=== PATIENT | female | born 1990 | race Caucasian/White ===

== ENCOUNTER 2016-05-02 21:56 | Emergency (ER) | payer OTHER ==
[2016-05-02 22:08] VITALS: BP 133/88; PULSE 80; TEMP 98.8; BMI 35.4
[2016-05-02 22:12] LABS: URINE APPEARANCE Cloudy; URINE BILIRUBIN Negative (NEGATIVE); URINE BLOOD 3+ (NEGATIVE); URINE COLOR YELLOW; URINE GLUCOSE (UA) Negative (NEGATIVE); URINE KETONE 1+ (NEGATIVE); URINE LEUK ESTERASE 1+ (NEGATIVE); URINE NITRITE Negative (NEGATIVE); URINE PROTEIN 3+ (NEGATIVE); URINE UROBILINOGEN 0.2 E.U/dl (0.2-1.0)
[2016-05-02 22:14] LABS: URINE RBC LOADED /hpf (0-3)
[2016-05-02 22:15] LABS: URINE BACTERIA FEW /hpf (NEGATIVE); URINE WBC 0-2 (3-5)
--- NOTE | 2016-05-02 22:17 | PDOC ---
History of Present Illness - General Chief Complaint: Pain Stated Complaint: RT FLANK PAIN Time Seen by Provider: 05/02/16 22:00 History Source: Patient Exam Limitations: No Limitations - History of Present Illness Initial Comments: 05/02/16 22:13 This is a 25-year-old female who comes in with her father for evaluation of right flank pain. Patient said that was acute onset of the pain. It was associated with some nausea but no vomiting. Patient said pain is somewhat waxing and waning. With radiation to her right lower abdominal area. Patient also has her menses and was recently treated for urinary tract infection so wasn 't sure what exactly was causing the pain. Patient does have a strong family history of renal colic she denies any history of kidney stones herself in the past. She denies any fevers or chills. PAST MEDICAL HISTORY: no significant history PAST SURGICAL HISTORY: no significant history FAMILY HISTORY: no pertinant history SOCIAL HISTORY: Pt lives with family and is employed. MEDICATIONS: reviewed ALLERGIES: As per nursing notes Review of Systems General: No fevers or chills, no weakness, no weight loss HEENT: No change in vision. No sore throat,. No ear pain CardioVascular: No chest pain or shortness of breath Respiratory:No cough, or wheezing. Gastrointestinal: no nausea, vomitting, diarrhea or constipation, No rectal bleeding Genitourinary: Plus mild dysuria, right flank pain abdomen and pelvis noncontrast Musculoskeletal: No joint or muscle pain or swelling Neurologic: No headache, vertigo, dizziness or loss of consciousness Psychiatric: nor depression Skin: No rashes or easy bruising Endocrine: no increased thirst or abnormal weight change Allergic: no skin or latex allergy All other systems reviewed and normal Exam: General: Well-nourished well-developed individual, no acute distress HEENT: Throat: Normal, tonsils normal, no erythema or exudate Neck: Supple, no meningeal signs, no lymphadenopathy Eyes::Pupils equal reactive and round, extraocular motion intact Chest: Nontender to palpation Cardiac: S1-S2 normal, regular rate and rhythm, no murmurs rubs or gallops Respiratory: Lungs clear to auscultation bilateral Abdomen: Soft, nondistended, normal bowel sounds, nontender to palpation diffusely Back/right flank there is tenderness on palpation right lower flank area. There is no CVA tenderness. Extremities: Warm, dry, no cyanosis, clubbing, or edema Skin: No rashes Neuro: Alert and oriented x3, nonfocal exam, grossly intact, normal gait Psych: Normal mood and affect 05/02/16 23:47 CAT scan shows no Goehner no nephrosis or hydroureter and no renal stones. It does show some small ovarian cyst that A shouldn't will need to follow-up with her OB It also shows a herniation of the disc at the L1-L2 level Assessment and plan: This is a 25-year-old female with right-sided flank pain. Patient had a workup that does show some blood in her urine but she is also having her menses. Patient also is complaining of some dysuria but there is no evidence of urinary tract infection at this time in her urine. There were a few white cells and bacteria but it also is not a clean catch. There is a fair amount of blood in the urine but patient is also to having her menses at this time. Patient's pain is most likely secondary to the herniated disc L1-L2 level. Patient was told to take ibuprofen or Aleve for the pain. She is given a prescription of prescription strength Naprosyn. Patient also given referral to an orthopedist. Patient told she needs to also follow-up with her OB doctor for an exam and ultrasound of her ovaries. Past History - Past Medical History Allergies/Adverse Reactions: Allergies Allergy/AdvReac Type Severity Reaction Status Date / Time Penicillins Allergy Verified 05/02/16 22:04 Home Medications: Ambulatory Orders Naproxen [Naprosyn -] 500 mg PO BID #14 tablet 05/02/16 Other medical history: DENIES - Psycho/Social/Smoking Cessation Hx Anxiety: No Suicidal Ideation: No Smoking History: Never smoked *Physical Exam - Vital Signs Last Vital Signs Temp Pulse Resp BP Pulse Ox 98.8 F 80 18 133/88 99 05/02/16 22:05 05/02/16 22:05 05/02/16 22:05 05/02/16 22:05 05/02/16 22:05 ED Treatment Course - LABORATORY CBC & Chemistry Diagram: 05/02/16 22:20 05/02/16 22:20 *DC/Admit/Observation/Transfer Diagnosis at time of Disposition: Acute right flank pain - Discharge Dispostion Disposition: HOME Condition at time of disposition: Stable - Patient Instructions Additional Instructions: For the pain take naproxen 1 tablet twice a day with food don't take on an empty stomach. I said a prescription for naproxen to your pharmacy. Your CAT scan showed some small cysts on your ovary that need to get followed up with your OB. Call your OB for an appointment and take the copy of your CAT scan with you. Follow-up also with an orthopedist if your back pain persists beyond a week. If he needed an orthopedist call Dr. Powell at [phone]. Return to the emergency department immediately with ANY new, persistent or worsening symptoms. Continue any medications as previously prescribed by your physician. You should follow up with your primary doctor as soon as possible regarding today's emergency department visit. . Please make sure your doctor reviews the results of your emergency evaluation. Thank you for coming to the Emergency Department today for your care. It was a pleasure to see you today. Please note that your evaluation is INCOMPLETE until you follow-up with your doctor.
[2016-05-02] MEDS ORDERED: SODIUM CHLORIDE 1,000 ML IV ONE (22:19)
[2016-05-02] MEDS ORDERED: morphine CARPU-JECT 2 MG/1 ML DISP.SYRIN IVPUSH ONE (22:19)
[2016-05-02] MEDS ORDERED: KETOROLAC TROMETHAMINE 30 MG/1 ML VIAL IVPUSH ONE (22:19)
[2016-05-02 22:26] LABS: BASOPHIL 0.7 % (0-2.0); EOSINOPHIL 1.1 % (0-4.5); MCH 27.8 pg (25.7-33.7); MCHC 32.6 g/dl (32.0-36.0); MEAN CELL VOLUME 85.4 fl (80-96); NEUTROPHILS 60.5 % (42.8-82.8); PLATELET COUNT 356 K/MM3 (134-434); RDW 13.9 % (11.6-15.6); WHITE BLOOD COUNT 8.1 K/mm3 (4.0-10.0)
[2016-05-02 23:22] LABS: ALBUMIN 4.2 g/dl (3.5-5.0); BILIRUBIN,TOTAL 0.6 mg/dl (0.2-1.0); CALCIUM 8.8 mg/dl (8.4-10.2); CREATININE 1.1 mg/dl (0.6-1.3); TOT PROT 7.2 g/dl (6.4-8.3)
== END 2016-05-02 23:56 | disposition home or self-care (01) ==
LOC: FER 21:56
PROC: 3E0337Z Introduction of Electrolytic and Water Balance Substance into Peripheral Vein, Percutaneous Approach (ICD-10-PCS; principal; 2016-05-02)
DX: R10.31 Right lower quadrant pain (principal)
CPT/HCPCS: 36415; 74176-TC; 80053; 81003; 81015; 84703; 85025; 99282-25

== ENCOUNTER 2016-12-10 21:48 | Emergency (ER) | payer OTHER ==
[2016-12-10 21:57] VITALS: BP 120/75; PULSE 84; TEMP 98.5; BMI 41.1
--- NOTE | 2016-12-10 21:59 | PDOC ---
History of Present Illness - General Chief Complaint: Shortness of Breath Stated Complaint: SOB/PRESSURE IN CHEST Time Seen by Provider: 12/10/16 21:49 History Source: Patient Exam Limitations: No Limitations - History of Present Illness Initial Comments: 26 yo F history asthma (not on medication) presents with palpitations, pressure in her chest. She states that she was recently told that she needs to have a root canal done or have the tooth pulled out. She states that today she felt some heaviness in her chest, palpitations. She endorses anxiety about having the tooth treated. Denies SOB, wheezing. She started clindamycin for the tooth today. Past History - Past Medical History Allergies/Adverse Reactions: Allergies Allergy/AdvReac Type Severity Reaction Status Date / Time Penicillins Allergy Verified 12/10/16 21:52 Home Medications: Ambulatory Orders Clindamycin [Cleocin -] 150 mg PO Q8H 12/10/16 - Psycho/Social/Smoking Cessation Hx Anxiety: No Suicidal Ideation: No Smoking History: Never smoked Review of Systems - Review of Systems Able to Perform ROS?: Yes Comments:: GENERAL/CONSTITUTIONAL: No fever or chills. No weakness. HEAD, EYES, EARS, NOSE AND THROAT: No change in vision. No ear pain or discharge. No sore throat. +Dental pain. CARDIOVASCULAR: No chest pain or shortness of breath. RESPIRATORY: No cough, wheezing, or hemoptysis. GASTROINTESTINAL: No nausea, vomiting, diarrhea or constipation. GENITOURINARY: No dysuria, frequency, or change in urination. MUSCULOSKELETAL: No joint or muscle swelling or pain. No neck or back pain. SKIN: No rash NEUROLOGIC: No headache, vertigo, loss of consciousness, or change in strength/ sensation. ENDOCRINE: No increased thirst. No abnormal weight change. HEMATOLOGIC/LYMPHATIC: No anemia, easy bleeding, or history of blood clots. ALLERGIC/IMMUNOLOGIC: No hives or skin allergy. *Physical Exam - Physical Exam Comments: GENERAL: Awake, alert, and fully oriented, in no acute distress HEAD: No signs of trauma EYES: PERRLA, EOMI, sclera anicteric, conjunctiva clear ENT: Auricles normal inspection, hearing grossly normal, nares patent, oropharynx clear without exudates. Moist mucosa. +Dental caries to tooth #17, with tenderness to percussion. NECK: Normal ROM, supple, no lymphadenopathy, JVD, or masses LUNGS: Breath sounds equal, clear to auscultation bilaterally. No wheezes, and no crackles HEART: Regular rate and rhythm, normal S1 and S2, no murmurs, rubs or gallops ABDOMEN: Soft, nontender, normoactive bowel sounds. No guarding, no rebound. No masses EXTREMITIES: Normal range of motion, no edema. No clubbing or cyanosis. No cords, erythema, or tenderness NEUROLOGICAL: Cranial nerves II through XII grossly intact. Normal speech, normal gait SKIN: Warm, Dry, normal turgor, no rashes or lesions noted. Heart Score/ECG Review - ECG Impressions Comment:: EKG read 22:21- NSR 81 bpm, no acute ST/T changes *DC/Admit/Observation/Transfer Diagnosis at time of Disposition: Pain, dental, Palpitations - Discharge Dispostion Disposition: HOME Condition at time of disposition: Stable Admit: No - Patient Instructions Printed Discharge Instructions: DI for Palpitations
--- NOTE | 2016-12-11 18:22 | EKG ---
Test Reason : Blood Pressure : / mmHG Vent. Rate : 081 BPM Atrial Rate : 081 BPM P-R Int : 124 ms QRS Dur : 086 ms QT Int : 372 ms P-R-T Axes : 060 053 044 degrees QTc Int : 432 ms NORMAL SINUS RHYTHM NO PREVIOUS ECGS AVAILABLE Confirmed by MD ASHLEY, JUSTIN ([id number]) on 12/11/2016 6:21:53 PM Referred By: DR SANDOVAL Confirmed By:JUSTIN RAMIREZ MD
== END 2016-12-10 22:31 | disposition home or self-care (01) ==
LOC: FER 21:48
DX: R00.2 Palpitations (principal); K08.89 Other specified disorders of teeth and supporting structures; F41.9 Anxiety disorder, unspecified
CPT/HCPCS: 93005; 99281-25

== ENCOUNTER 2021-04-08 15:41 | Emergency (ER) | payer OTHER ==
[2021-04-08 16:03] VITALS: BP 136/77; PULSE 82; TEMP 99.1; BMI 38.0
== END 2021-04-08 17:24 | disposition home or self-care (01) ==
LOC: FER 15:41
DX: U07.1 COVID-19 (principal)
CPT/HCPCS: 71045-TC-FY; 99283-25